=== PATIENT | female | born 1960 | race Caucasian/White ===

== ENCOUNTER 2023-06-08 09:58 | Emergency (ER) | payer MEDICARE, OTHER ==
[2023-06-08] MEDS ORDERED: Sodium Chloride 0.9% 1000 ML 1,000 ML ONE ×3 (10:39→13:21)
[2023-06-08] MEDS: Sodium Chloride 0.9% 1000 ML 1,000 ML IV STA ×4 (10:41→13:28)
[2023-06-08 10:50] LABS: Hematocrit 33.2 % (35-47); Hemoglobin 10.1 g/dL (12.0-16.0); Mean Cell Volume 78.3 fL (78-100); Mean Corpuscular Hemoglobin 23.8 pg (26-32); Mean Corpuscular Hgb Concent. 30.4 g/dL (32-36); Mean Platelet Volume 9.1 fL (7.5-11.0); Red Blood Count 4.24 x10^6/uL (4.1-5.4)
[2023-06-08] MEDS ORDERED: PIPERACILLIN/TAZOBACTAM 3.375 GM in Sodium Chloride 100ML MINI-BAG PLUS 100 ML IV ONE (10:50)
[2023-06-08 10:54] LABS: White Blood Count 44.2 x10^3/uL (4.0-10.5)
[2023-06-08 10:55] LABS: Platelet Count 1051 x10^3/uL (150-450)
[2023-06-08 10:58] LABS: ANION GAP 25.8 MEQ/L (5-15); BILIRUBIN,TOTAL 0.8 mg/dL (0.2-1.3); Calcium 10.7 mg/dL (8.4-10.2); Creatinine 1 0.91 mg/dL (0.52-1.04); EST GLOMERULAR FILTRATION RATE 71.3 ML/MIN
[2023-06-08 11:11] LABS: Potassium 4.5 mmol/L (3.5-5.1)
[2023-06-08 11:13] LABS: ADD URINE CULTURE? YES (NO); Appearance Turbid (Clear); Bacteria Many /HPF (None Seen); Bilirubin Negative (Negative); Blood Small (Negative); Epithelial Cells None Seen /HPF (None Seen); Glucose, Urine >=1000 mg/dL (Negative); Ketones >=160 (Negative); Leukocyte Esterase Moderate (Negative); Nitrite Positive (Negative); Ph 5.5 (4.6-8.0); Protein,Urine Dip 30 (Negative); Specific Gravity >=1.030 (1.005-1.030); Urobilinogen 0.2 mg/dL (0.2); WBC >100 /HPF (0-5)
[2023-06-08 11:18] LABS: Lymphocytes 9 % (24-44); Monocyte 3 % (0.0-12.0); Neutrophils 88 % (36.0-66.0); Platelet Estimate INCREASED (NORMAL); Total Cells Counted 100
[2023-06-08] MEDS ORDERED: PIPERACILLIN/TAZOBACTAM IV ONE (11:18)
--- NOTE | 2023-06-08 11:18 | ERPHSYRPT ---
- History of Present Illness Source: patient, other (Patient's sister) Exam Limitations: other (Poor historian) Patient Subjective Stated Complaint: she states for sob, weakness she states she has not been out of bed for 4 days now,denies fever, n/v, she is on antibotic for a wound to right lower leg. pt is a poor historian, Triage Nursing Assessment: pt alert, arrived per . able to get form bed to , resp easy, skin w/d/p. pt has toes amputated to both feet, has fluid filled blister to right lowe leg. has ulcer to bottom Physician History: 62-year-old female with multiple medical problems presents to the ER hypotensive with lethargy x 2 weeks, dyspnea upon exertion, and some "chest heaviness" wo overt chest pain. Patient recently saw Dr. Pitts and was placed on Bactrim DS p.o. twice daily for right lower extremity abscess. Patient denies fever, cough, abdominal pain, dysuria,nausea,vomiting, diarrhea and hematuria. Is also noted the patient has a possible pressure ulcer on her right buttock. Significant past medical history includes diabetes mellitus, amputation of all toes, cellulitis right lower extremity with skin graft, and HTN.Patient is ambulatory only with a walker and does wear an adult diaper. She lives by herself. Timing/Duration: other (2-weeks) Severity: severe Modifying Factors: Improves With: nothing Associated Symptoms: loss of appetite, malaise Allergies/Adverse Reactions: No Known Drug Allergies Allergy (Verified 06/08/23 10:03) Home Medications: Aspirin EC 325 mg [Ecotrin 325 MG] 81 mg PO DAILY 09/19/20 [History] Atorvastatin Calcium [Lipitor 20MG Tablet] 20 mg PO HS 09/19/20 [History] Levothyroxine Sodium 75 Mcg [Synthroid 75 Mcg] 75 mcg PO DAILY 09/19/20 [History] Lisinopril 10 mg [Zestril 10 MG] 5 mg PO DAILY 09/19/20 [History] Venlafaxine HCl [Venlafaxine HCl ER] 75 mg PO DAILY 09/19/20 [History] Alendronate Sodium 70 mg [Fosamax 70 MG] 70 mg PO DAILY 06/08/23 [History] Calcium Carbonate/Vitamin D3 [Calcium 600 with Vit D Chew Tb] 1 each PO DAILY 06/08/23 [History] Clopidogrel Bisulfate [PLAVIX Tablet] 75 mg PO DAILY 06/08/23 [History] Empagliflozin [Jardiance] 10 mg PO DAILY 06/08/23 [History] Ferrous Sulfate 325 mg [Feosol 325 mg] 325 mg PO DAILY 06/08/23 [History] Insulin Glargine [Lantus Insulin] 20 unit SQ DAILY 06/08/23 [History] Insulin Lispro [Admelog Solostar] 4 unit SQ DAILY 06/08/23 [History] Metformin HCl 500 mg [Glucophage 500 MG] 1,000 mg PO DAILY 06/08/23 [History] Naproxen Sodium [Aleve] 440 mg PO BID 06/08/23 [History] Hx Tetanus, Diphtheria Vaccination/Date Given: No Hx Influenza Vaccination/Date Given: No Hx Pneumococcal Vaccination/Date Given: No Immunizations Up to Date: Yes Travel Risk - International Travel Have you traveled outside of the country in past 3 weeks: No - Coronavirus Screening Are you exhibiting any of the following symptoms?: Yes Symptoms: Shortness of Breath - Vaccine Status Have you recieved a Covid-19 vaccination: No - Review of Systems Constitutional: No Symptoms, Fatigue, Lethargy, Malaise, Weakness Eyes: No Symptoms Ears, Nose, & Throat: No Symptoms Respiratory: No Symptoms, Dyspnea on Exertion (CASTILLO) Cardiac: No Symptoms, Other (Chest heaviness) Abdominal/Gastrointestinal: No Symptoms Genitourinary Symptoms: No Symptoms Musculoskeletal: No Symptoms Skin: Other Neurological: No Symptoms Psychological: No Symptoms Endocrine: No Symptoms Hematologic/Lymphatic: No Symptoms Immunological/Allergic: No Symptoms - Past Medical History Pertinent Past Medical History: Yes Neurological History: No Pertinent History, Seizures ENT History: No Pertinent History Cardiac History: High Cholesterol, Hypertension Respiratory History: No Pertinent History Endocrine Medical History: Diabetes Type II Musculoskeletal History: Osteoarthritis GI Medical History: No Pertinent History History: No Pertinent History Psycho-Social History: Depression Female Reproductive Disorders: No Pertinent History Other Medical History: R TKA 2018. Pt notes seizures when she was a child. - Past Surgical History Past Surgical History: Yes Neuro Surgical History: No Pertinent History Cardiac: No Pertinent History Respiratory: No Pertinent History Gastrointestinal: No Pertinent History Genitourinary: No Pertinent History Musculoskeletal: Orthopedic Surgery Female Surgical History: Section, Tubal Ligation Other Surgical History: left knee I&D September 2020, right knee replacement 2018. toes removed, stent in legs - Social History Smoking Status: Current every day smoker How long have you smoked: 1 1/2 Exposure to second hand smoke: Yes Drug Use: none Patient Lives Alone: Yes - Nursing Vital Signs Nursing Vital Signs: Initial Vital Signs Temperature 96.8 F 06/08/23 10:18 Pulse Rate 110 H 06/08/23 10:18 Respiratory Rate 20 06/08/23 10:18 Blood Pressure 79/56 06/08/23 10:18 O2 Sat by Pulse Oximetry 95 06/08/23 10:18 Pain Scale Pain Intensity 0 Tachycardic, hypotensive - Physical Exam General Appearance: moderate distress, thin Eye Exam: PERRL/EOMI Ears, Nose, Throat Exam: normal ENT inspection, TMs normal Neck Exam: normal inspection, No Brudzinski, No Kernig's Respiratory Exam: normal breath sounds, lungs clear Cardiovascular Exam: tachycardia, No murmur Gastrointestinal/Abdomen Exam: soft, normal bowel sounds, No tenderness Back Exam: normal inspection, normal range of motion Extremity Exam: other (Small possible abscess right medial calf/early pressure ulceration on right buttock.), No pedal edema, No swelling Neurologic Exam: alert, oriented x 3, cooperative, manager account management II-XII nml as tested, normal mood/affect, sensation nml, No motor deficits, No sensory deficit Skin Exam: normal color, warm, dry Lymphatic Exam: No adenopathy SpO2 Interpretation: normal SpO2: 96 O2 Delivery: Room Air - Course Nursing assessment & vital signs reviewed: Yes EKG Interpreted by Me: RATE (Sinus tachycardia/rate 118/normal QT/normal QTc/artifact present/no acute ST segment changes/interpreted contemporaneously per ER physician.) - Radiology Exams Chest X-ray Interpretation: Reviewed by me (Nothing acute) - CT Exams Abdomen/Pelvis CT Interpretation: Discussed w/radiologist (CT abdomen pelvis without contrast/hiatal hernia/appendicolith without appendicitis/extensive arteriosclerotic disease) Ordered Tests: Active Orders 24 hr Category Date Time Status EKG-ER Only STAT Care 06/08/23 10:41 Completed IV Insertion STAT Care 06/08/23 10:41 Completed ABDOMEN AND PELVIS W/0 CONTRAS [CT] Stat Exams 06/08/23 13:24 Completed CHEST 1 VIEW (PORTABLE) Stat Exams 06/08/23 10:41 Completed ABG [ARTERIAL BLOOD GASES] Stat Lab 06/08/23 11:50 Completed BLOOD CULTURE Stat Lab 06/08/23 11:55 Received BMP Stat Lab 06/08/23 13:27 Completed CBC W DIFF Stat Lab 06/08/23 10:47 Results CMP Stat Lab 06/08/23 10:47 Completed CULTURE,URINE Stat Lab 06/08/23 10:47 Received CULTURE,WOUND Stat Lab 06/08/23 15:13 Received Lactic Acid Stat Lab 06/08/23 10:43 Completed Lactic Acid Stat Lab 06/08/23 12:50 Completed Manual Differential NC Stat Lab 06/08/23 10:47 Results Pathologist Review Stat Lab 06/08/23 10:47 Results TROPONIN Q4H Lab 06/08/23 10:47 Completed TROPONIN Q4H Lab 06/08/23 13:27 Completed UA W/RFX UR CULTURE Stat Lab 06/08/23 10:47 Completed Medication Summary Discontinued Medications Generic Name Dose Route Start Last Admin Trade Name Freq PRN Reason Stop Dose Admin Sodium Chloride 1,000 mls @ 999 mls/hr 06/08/23 10:40 06/08/23 16:49 Sodium Chloride 0.9% 1000 Ml IV 06/08/23 11:40 Infused .Q1H1M STA Infusion Sodium Chloride Confirm 06/08/23 10:39 Sodium Chloride 0.9% 1000 Ml Administered 06/08/23 10:40 Dose 1,000 mls @ ud .ROUTE .STK-MED ONE Piperacillin Sod/Tazobactam 100 mls @ 200 mls/hr 06/08/23 10:50 06/08/23 11:39 Sod 3.375 gm/ Sodium Chloride IV 06/08/23 11:19 200 mls/hr STAT ONE Administration Sodium Chloride 1,000 mls @ 999 mls/hr 06/08/23 10:53 06/08/23 16:50 Sodium Chloride 0.9% 1000 Ml IV 06/08/23 11:53 Infused .Q1H1M STA Infusion Sodium Chloride Confirm 06/08/23 11:18 Sodium Chloride 0.9% 1000 Ml Administered 06/08/23 11:19 Dose 1,000 mls @ ud .ROUTE .STK-MED ONE Sodium Chloride Confirm 06/08/23 11:19 Sodium Chloride 100ml Mini-Bag Plus Administered 06/08/23 11:20 Dose 100 mls @ ud IV .STK-MED ONE Vancomycin HCl 1 gm in 200 mls @ 125 mls/hr 06/08/23 11:45 06/08/23 16:48 Vancomycin 1 Gram/200 Ml Bag IV 07/08/23 11:44 Infused Q12H ADALBERTO Infusion Sodium Chloride 1,000 mls @ 999 mls/hr 06/08/23 13:20 06/08/23 16:50 Sodium Chloride 0.9% 1000 Ml IV 06/08/23 14:20 Infused .Q1H1M STA Infusion Sodium Chloride Confirm 06/08/23 13:21 Sodium Chloride 0.9% 1000 Ml Administered 06/08/23 13:22 Dose 1,000 mls @ ud .ROUTE .STK-MED ONE Norepinephrine/Dextrose 8 mg in 250 mls @ 15 mls/hr 06/08/23 14:13 06/08/23 14:20 Norepinephrine 8 Mg/250 Ml-D5w IV 07/08/23 14:12 8 mcg/min .[id number] PRN 15 mls/hr HYPOTENSION Administration Protocol 8 MCG/MIN Vancomycin HCl Confirm 06/08/23 11:51 Vancomycin 1 Gram/200 Ml Bag Administered 06/08/23 11:52 Dose 1 gm in 200 mls @ ud IV .STK-MED ONE Norepinephrine/Dextrose Confirm 06/08/23 14:15 Norepinephrine 8 Mg/250 Ml-D5w Administered 06/08/23 14:16 Dose 8 mg in 250 mls @ ud IV .STK-MED ONE Piperacillin Sod/Tazobactam Sod Confirm 06/08/23 11:18 Piperacillin/Tazobactam Sodium 3.375 Gm Vial Administered 06/08/23 11:19 Dose 3.375 gm IV .STK-MED ONE Lab/Rad Data: Laboratory Result Diagrams 06/08/23 10:47 06/08/23 13:27 Laboratory Results 06/08/23 06/08/23 06/08/23 Range/Units 13:27 13:27 12:50 WBC (4.0-10.5) x10^3/uL RBC (4.1-5.4) x10^6/uL Hgb (12.0-16.0) g/dL Hct (35-47) % MCV (78-100) fL MCH (26-32) pg MCHC (32-36) g/dL RDW (11.5-14.0) % Plt Count (150-450) x10^3/uL MPV (7.5-11.0) fL Segmented Neutrophils (36.0-66.0) % Lymphocytes (Manual) (24-44) % Monocytes (Manual) (0.0-12.0) % Platelet Estimate (NORMAL) RBC Morphology Anisocytosis Smear Path Review Puncture Site pCO2 (35-45) mmHg pO2 (75-100) mmHg Base Excess (-2.0-2.0) O2 Saturation (94-100) g/dF ABG pH (7.35-7.45) ABG HCO3 (22-28) ABG O2 Sat (Measured) (95-100) % Mathew Test A-a Gradient a/A Ratio Hemoglobin Carboxyhemoglobin (0.0-6.9) % THgb Methemoglobin (1.4-1.5) % Temperature C POC O2 Flow Rate % Sodium 128 L (137-145) mmol/L Potassium 4.3 (3.5-5.1) mmol/L Chloride 100 (98-107) mmol/L Carbon Dioxide 14 L* (22-30) mmol/L Anion Gap 18.8 H (5-15) MEQ/L BUN 17 (7-17) mg/dL Creatinine 0.76 (0.52-1.04) mg/dL Estimated GFR 88.5 ML/MIN Glucose 140 H (74-106) mg/dL Lactic Acid 0.7 (0.4-2.0) Calcium 9.4 (8.4-10.2) mg/dL Total Bilirubin (0.2-1.3) mg/dL AST (14-36) U/L ALT (0-35) U/L Alkaline Phosphatase (38-126) U/L Troponin I < 0.012 (0.000-0.034) ng/mL Serum Total Protein (6.3-8.2) g/dL Albumin (3.5-5.0) g/dL Urine Color (Yellow) Urine Appearance (Clear) Urine pH (4.6-8.0) Ur Specific [place] (1.005-1.030) Urine Protein (Negative) Urine Glucose (UA) (Negative) mg/dL Urine Ketones (Negative) Urine Blood (Negative) Urine Nitrite (Negative) Urine Bilirubin (Negative) Urine Urobilinogen (0.2) mg/dL Ur Leukocyte Esterase (Negative) U Hyaline Cast (Auto) (0-2) /LPF Urine Microscopic RBC (0-5) /HPF Urine Microscopic WBC (0-5) /HPF Ur Epithelial Cells (None Seen) /HPF Urine Bacteria (None Seen) /HPF Urine Culture Reflexed (NO) Influenza Type A Ag (NEGATIVE) Influenza Type B Ag (NEGATIVE) RSV (PCR) (NEGATIVE) SARS-CoV-2 (PCR) (NEGATIVE) 06/08/23 06/08/23 06/08/23 Range/Units 11:50 10:47 10:47 WBC (4.0-10.5) x10^3/uL RBC (4.1-5.4) x10^6/uL Hgb (12.0-16.0) g/dL Hct (35-47) % MCV (78-100) fL MCH (26-32) pg MCHC (32-36) g/dL RDW (11.5-14.0) % Plt Count (150-450) x10^3/uL MPV (7.5-11.0) fL Segmented Neutrophils (36.0-66.0) % Lymphocytes (Manual) (24-44) % Monocytes (Manual) (0.0-12.0) % Platelet Estimate (NORMAL) RBC Morphology Anisocytosis Smear Path Review Puncture Site LEFT RADIAL pCO2 24 L (35-45) mmHg pO2 91 (75-100) mmHg Base Excess -10.0 L (-2.0-2.0) O2 Saturation 94.9 (94-100) g/dF ABG pH 7.37 (7.35-7.45) ABG HCO3 13.9 L* (22-28) ABG O2 Sat (Measured) 96.2 (95-100) % Mathew Test YES A-a Gradient 29 a/A Ratio 0.76 Hemoglobin 9.2 Carboxyhemoglobin 1.4 (0.0-6.9) % THgb Methemoglobin 0.0 L (1.4-1.5) % Temperature 37.0 C POC O2 Flow Rate 21 % Sodium (137-145) mmol/L Potassium 3.8 (3.5-5.1) mmol/L Chloride (98-107) mmol/L Carbon Dioxide (22-30) mmol/L Anion Gap (5-15) MEQ/L BUN (7-17) mg/dL Creatinine (0.52-1.04) mg/dL Estimated GFR ML/MIN Glucose (74-106) mg/dL Lactic Acid (0.4-2.0) Calcium (8.4-10.2) mg/dL Total Bilirubin (0.2-1.3) mg/dL AST (14-36) U/L ALT (0-35) U/L Alkaline Phosphatase (38-126) U/L Troponin I < 0.012 (0.000-0.034) ng/mL Serum Total Protein (6.3-8.2) g/dL Albumin (3.5-5.0) g/dL Urine Color (Yellow) Urine Appearance (Clear) Urine pH (4.6-8.0) Ur Specific [place] (1.005-1.030) Urine Protein (Negative) Urine Glucose (UA) (Negative) mg/dL Urine Ketones (Negative) Urine Blood (Negative) Urine Nitrite (Negative) Urine Bilirubin (Negative) Urine Urobilinogen (0.2) mg/dL Ur Leukocyte Esterase (Negative) U Hyaline Cast (Auto) (0-2) /LPF Urine Microscopic RBC (0-5) /HPF Urine Microscopic WBC (0-5) /HPF Ur Epithelial Cells (None Seen) /HPF Urine Bacteria (None Seen) /HPF Urine Culture Reflexed (NO) Influenza Type A Ag NEGATIVE (NEGATIVE) Influenza Type B Ag NEGATIVE (NEGATIVE) RSV (PCR) NEGATIVE (NEGATIVE) SARS-CoV-2 (PCR) NEGATIVE (NEGATIVE) 06/08/23 06/08/23 06/08/23 Range/Units 10:47 10:47 10:47 WBC 44.2 H* (4.0-10.5) x10^3/uL RBC 4.24 (4.1-5.4) x10^6/uL Hgb 10.1 L (12.0-16.0) g/dL Hct 33.2 L (35-47) % MCV 78.3 (78-100) fL MCH 23.8 L (26-32) pg MCHC 30.4 L (32-36) g/dL RDW 18.0 H (11.5-14.0) % Plt Count 1051 H* (150-450) x10^3/uL MPV 9.1 (7.5-11.0) fL Segmented Neutrophils 88 H (36.0-66.0) % Lymphocytes (Manual) 9 L (24-44) % Monocytes (Manual) 3 (0.0-12.0) % Platelet Estimate INCREASED (NORMAL) RBC Morphology ABNORMAL Anisocytosis 1+ Smear Path Review Pending Puncture Site pCO2 (35-45) mmHg pO2 (75-100) mmHg Base Excess (-2.0-2.0) O2 Saturation (94-100) g/dF ABG pH (7.35-7.45) ABG HCO3 (22-28) ABG O2 Sat (Measured) (95-100) % Mathew Test A-a Gradient a/A Ratio Hemoglobin Carboxyhemoglobin (0.0-6.9) % THgb Methemoglobin (1.4-1.5) % Temperature C POC O2 Flow Rate % Sodium 126 L (137-145) mmol/L Potassium 4.5 (3.5-5.1) mmol/L Chloride 94 L (98-107) mmol/L Carbon Dioxide 9 L* (22-30) mmol/L Anion Gap 25.8 H (5-15) MEQ/L BUN 18 H (7-17) mg/dL Creatinine 0.91 (0.52-1.04) mg/dL Estimated GFR 71.3 ML/MIN Glucose 174 H (74-106) mg/dL Lactic Acid (0.4-2.0) Calcium 10.7 H (8.4-10.2) mg/dL Total Bilirubin 0.80 (0.2-1.3) mg/dL AST 32 (14-36) U/L ALT 18 (0-35) U/L Alkaline Phosphatase 134 H (38-126) U/L Troponin I (0.000-0.034) ng/mL Serum Total Protein 8.0 (6.3-8.2) g/dL Albumin 4.0 (3.5-5.0) g/dL Urine Color Yellow (Yellow) Urine Appearance Turbid A (Clear) Urine pH 5.5 (4.6-8.0) Ur Specific [place] >=1.030 A (1.005-1.030) Urine Protein 30 (Negative) Urine Glucose (UA) >=1000 A (Negative) mg/dL Urine Ketones >=160 A (Negative) Urine Blood Small A (Negative) Urine Nitrite Positive A (Negative) Urine Bilirubin Negative (Negative) Urine Urobilinogen 0.2 (0.2) mg/dL Ur Leukocyte Esterase Moderate A (Negative) U Hyaline Cast (Auto) 3-5 A (0-2) /LPF Urine Microscopic RBC 3-5 (0-5) /HPF Urine Microscopic WBC >100 A (0-5) /HPF Ur Epithelial Cells None Seen (None Seen) /HPF Urine Bacteria Many A (None Seen) /HPF Urine Culture Reflexed YES (NO) Influenza Type A Ag (NEGATIVE) Influenza Type B Ag (NEGATIVE) RSV (PCR) (NEGATIVE) SARS-CoV-2 (PCR) (NEGATIVE) 06/08/23 Range/Units 10:43 WBC (4.0-10.5) x10^3/uL RBC (4.1-5.4) x10^6/uL Hgb (12.0-16.0) g/dL Hct (35-47) % MCV (78-100) fL MCH (26-32) pg MCHC (32-36) g/dL RDW (11.5-14.0) % Plt Count (150-450) x10^3/uL MPV (7.5-11.0) fL Segmented Neutrophils (36.0-66.0) % Lymphocytes (Manual) (24-44) % Monocytes (Manual) (0.0-12.0) % Platelet Estimate (NORMAL) RBC Morphology Anisocytosis Smear Path Review Puncture Site pCO2 (35-45) mmHg pO2 (75-100) mmHg Base Excess (-2.0-2.0) O2 Saturation (94-100) g/dF ABG pH (7.35-7.45) ABG HCO3 (22-28) ABG O2 Sat (Measured) (95-100) % Mathew Test A-a Gradient a/A Ratio Hemoglobin Carboxyhemoglobin (0.0-6.9) % THgb Methemoglobin (1.4-1.5) % Temperature C POC O2 Flow Rate % Sodium (137-145) mmol/L Potassium (3.5-5.1) mmol/L Chloride (98-107) mmol/L Carbon Dioxide (22-30) mmol/L Anion Gap (5-15) MEQ/L BUN (7-17) mg/dL Creatinine (0.52-1.04) mg/dL Estimated GFR ML/MIN Glucose (74-106) mg/dL Lactic Acid 3.4 H (0.4-2.0) Calcium (8.4-10.2) mg/dL Total Bilirubin (0.2-1.3) mg/dL AST (14-36) U/L ALT (0-35) U/L Alkaline Phosphatase (38-126) U/L Troponin I (0.000-0.034) ng/mL Serum Total Protein (6.3-8.2) g/dL Albumin (3.5-5.0) g/dL Urine Color (Yellow) Urine Appearance (Clear) Urine pH (4.6-8.0) Ur Specific [place] (1.005-1.030) Urine Protein (Negative) Urine Glucose (UA) (Negative) mg/dL Urine Ketones (Negative) Urine Blood (Negative) Urine Nitrite (Negative) Urine Bilirubin (Negative) Urine Urobilinogen (0.2) mg/dL Ur Leukocyte Esterase (Negative) U Hyaline Cast (Auto) (0-2) /LPF Urine Microscopic RBC (0-5) /HPF Urine Microscopic WBC (0-5) /HPF Ur Epithelial Cells (None Seen) /HPF Urine Bacteria (None Seen) /HPF Urine Culture Reflexed (NO) Influenza Type A Ag (NEGATIVE) Influenza Type B Ag (NEGATIVE) RSV (PCR) (NEGATIVE) SARS-CoV-2 (PCR) (NEGATIVE) - Progress Progress: improved Progress Note: 06/08/23 13:32 Nursing note and vital signs reviewed. No food or housing insecurity noted. Patient arrived hypotensive and most likely septic. IV access started immediately. Patient given 2 L normal saline bolus/blood cultures x 2/3.375 g IV Zosyn/1 g IV vancomycin. Admit to ICU per Dr. Shanthi Maki and Relief Master later called back and stated that no ICU bed was available so patient would have to be transferred. 06/08/23 15:49 Patient accepted by [facility]. 06/08/23 23:19 Patient received 3 L normal saline bolus while in the ER with still borderline blood pressure. Levophed drip was started at 2 and was up to 4 before patient was transferred. Patient's blood pressure in the mid to high 90s before transfer, and patient was quite stable. Discussed with Dr.: Daniel Counseled pt/family regarding: lab results, diagnosis, rad results Medical Desision Making - Independent Historian Additional History obtained from: Family - Diagnostic Testing Diagnostic test were ordered, analyzed, and reviewed by me: Yes Radiological Interpretation: Reviewed by me - Risk of complications The pt has a high risk of morbidity or mortality based on: Decision regarding hospitilization or escalation of hosp level of care - Departure Departure Disposition: Transfer Clinical Impression: Sepsis, UTI (urinary tract infection) Condition: Critical Critical Care Time: Yes Critical Care Time(excluding separately billable procedures): Critical 165-194 mins Referrals: JUNAID PITTS [Primary Care Provider] - Follow up/PCP as directed
[2023-06-08 11:19] LABS: ANISOCYTOSIS 1+
[2023-06-08] MEDS ORDERED: Sodium Chloride 100ML MINI-BAG PLUS 100 ML IV ONE (11:19)
[2023-06-08 11:28] LABS: INFLUENZA A NEGATIVE (NEGATIVE); INFLUENZA B NEGATIVE (NEGATIVE); RESPIRATORY SYNCTIAL VIRUS NEGATIVE (NEGATIVE); SARS-CoV-2 Xpert Express NEGATIVE (NEGATIVE)
[2023-06-08] MEDS ORDERED: VANCOMYCIN 1 GRAM/200 ML BAG 1 GM/200 ML PIGGYBACK IV SCH (11:45)
[2023-06-08] MEDS ORDERED: VANCOMYCIN 1 GRAM/200 ML BAG 1 GM/200 ML PIGGYBACK IV ONE (11:51)
[2023-06-08 11:54] LABS: A-aADO2 29; ABG HEMOGLOBIN 9.2; ABG POTASSIUM 3.8 (3.5-5.1); ABG SITE LEFT RADIAL; ALLEN TEST OK? YES; ARTERIAL BLD GAS O2 SATURATION 96.2 % (95-100); ARTERIAL BLOOD GAS FIO2 21 %; ARTERIAL BLOOD GAS PCO2 24 mmHg (35-45); ARTERIAL BLOOD GAS PO2 91 mmHg (75-100); ARTERIAL BLOOD GAS pH 7.37 (7.35-7.45); CARBOXYHEMOGLOBIN 1.4 % THgb (0.0-6.9); HCO3- 13.9 (22-28); HGB O2 SAT 94.9 g/dF (94-100); paO2 pAO1 0.76
--- NOTE | 2023-06-08 11:55 | XRAY ---
Indication: Lethargy. Comparison: None Portable chest hyperinflated with moderate sized hiatal hernia and intrathoracic stomach occupying medial left lung base. Remaining heart and lungs unremarkable. Bony thorax intact with osteopenia. Impression: Nonacute hyperinflated chest with chronic features.
[2023-06-08] MEDS ORDERED: Sodium Chloride 0.9% 1000 ML 1,000 ML IV STA (13:20)
[2023-06-08 13:44] LABS: ANION GAP 18.8 MEQ/L (5-15); Calcium 9.4 mg/dL (8.4-10.2); Creatinine 1 0.76 mg/dL (0.52-1.04); EST GLOMERULAR FILTRATION RATE 88.5 ML/MIN; Potassium 4.3 mmol/L (3.5-5.1)
[2023-06-08] MEDS ORDERED: NOREPINEPHRINE 8 MG/250 ML-D5W 8 MG/250 ML PLAST..BAG IV PRN (14:13)
--- NOTE | 2023-06-08 14:13 | XRAY ---
Indication: Right buttock pressure ulcer. Sepsis. Multiple contiguous axial images obtained through the abdomen and pelvis without contrast. A cutaneous BB placed over region of interest. Comparison: None Lung bases demonstrate mild bibasilar subsegmental atelectasis. Moderate-sized fluid distended hiatal hernia with partial intrathoracic stomach left lung base. Heart not enlarged. Right gluteal cutaneous BB without focal underlying solid/cystic soft tissue mass, abnormal fluid collection, or subcutaneous emphysema. Stomach distended with food/fluid. Gallbladder contracted without gallstones. Noncontrasted stomach and bowel loops appear nonobstructed. Appendix demonstrates curvilinear appendicolith without CT features for acute appendicitis. No free fluid/air. Remaining liver, pancreas, spleen, adrenal glands, kidneys, ureters, and bladder are unremarkable for noncontrast exam. Extensive scattered arteriosclerotic disease. Right iliac arteries demonstrates multiple stents. Lack of IV contrast precludes further characterization of vessels and stents. Osseous structures intact. No ventral or inguinal hernias. Impression: 1. Chronic findings including hiatal hernia with partial intrathoracic stomach, appendicolith without appendicitis, extensive arteriosclerotic disease, and right iliac stents. 2. Remaining CT abdomen/pelvis without contrast exam is negative.
[2023-06-08] MEDS ORDERED: NOREPINEPHRINE 8 MG/250 ML-D5W 8 MG/250 ML PLAST..BAG IV ONE (14:15)
[2023-06-08 18:17] VITALS: BP 104/69; PULSE 105; RESP 20; TEMP 97.1
[2023-06-08 23:22] VITALS: O2SAT 96
== END 2023-06-08 18:37 | disposition short-term general hospital (02) ==
LOC: ED 09:58
DX: A41.9 Sepsis, unspecified organism (principal); N39.0 Urinary tract infection, site not specified; I95.9 Hypotension, unspecified; R07.9 Chest pain, unspecified; E11.9 Type 2 diabetes mellitus without complications; I10 Essential (primary) hypertension; E78.5 Hyperlipidemia, unspecified; Z79.02 Long term (current) use of antithrombotics/antiplatelets; Z79.84 Long term (current) use of oral hypoglycemic drugs; Z79.4 Long term (current) use of insulin; Z79.899 Other long term (current) drug therapy; Z28.310 Unvaccinated for COVID-19; Z72.0 Tobacco use; Z20.828 Contact with and (suspected) exposure to other viral communicable diseases
CPT/HCPCS: 0241U; 36000; 36415; 36600; 71045; 74176; 80048; 80053; 81001; 82375; 82803; 83605; 84484; 85025; 87040; 87070; 87077; 87086; 87186; 93005; 96360; 96361; 96365; 96367; 96374; 96375; 99285; 99291; 99292; J3370